=== PATIENT | male | born 1965 | race Caucasian/White ===

== ENCOUNTER 2022-03-08 14:31 | Inpatient (IN) | payer OTHER ==
[2022-03-08 15:43] VITALS: BMI 21.4
[2022-03-08] MEDS ORDERED: MAGNESIUM HYDROX 2400MG/30ML ORAL SUSPENSION 30 ML CUP PO PRN (20:55)
[2022-03-08] MEDS ORDERED: LOPERAMIDE HCL 2 MG CAPSULE PO PRN (20:55)
[2022-03-08] MEDS ORDERED: MAG HYDROX/AL HYDROX/SIMETH 30 ML UNIT-DOSE CUP PO PRN (20:55)
[2022-03-08] MEDS ORDERED: BISMUTH SUBSALICYLATE 524 MG/30 ML PO PRN (20:55)
[2022-03-08] MEDS ORDERED: NICOTINE POLACRILEX 2 MG GUM BUC PRN (20:55)
[2022-03-08] MEDS ORDERED: BENZOCAINE/MENTHOL (CHLORASEPTIC ) LOZENGE MM PRN (20:55)
[2022-03-08] MEDS ORDERED: methaDONE HCL 10 MG TABLET (FOR DETOX USE ONLY) PO ONE (20:55)
[2022-03-08] MEDS ORDERED: MAGNESIUM CITRATE 300 ML BOTTLE PO PRN (20:55)
[2022-03-08] MEDS ORDERED: ONDANSETRON *ODT* 4 MG TABLET SL PRN (20:55)
[2022-03-08] MEDS ORDERED: cloNIDine HCL 0.1 MG TABLET PO PRN (20:55)
[2022-03-08] MEDS ORDERED: ACETAMINOPHEN 325 MG TABLET (FP) PO PRN (20:55)
[2022-03-09] MEDS: MELATONIN 5 MG TABLETS PO SCH ×2 (00:01→22:32)
[2022-03-09] MEDS: THIAMINE HCL 100 MG TABLET (FP) PO SCH ×2 (00:02→22:32)
[2022-03-09] MEDS ORDERED: methaDONE HCL 10 MG TABLET (FOR DETOX USE ONLY) ONE (09:35)
[2022-03-09] MEDS: PRENATAL VITAMINS W/ FOLIC ACID TABLET (FP) PO SCH (10:20)
[2022-03-09] MEDS: NICOTINE 14 MG/24 HOURS TOPICAL PATCH TD SCH (11:01)
[2022-03-10] MEDS ORDERED: methaDONE HCL 10 MG TABLET (FOR DETOX USE ONLY) PO ONE (10:00)
[2022-03-10] MEDS: PRENATAL VITAMINS W/ FOLIC ACID TABLET (FP) PO SCH (10:20)
[2022-03-10] MEDS: METHOCARBAMOL 500 MG TABLET PO PRN (10:20)
[2022-03-10] MEDS: NICOTINE 14 MG/24 HOURS TOPICAL PATCH TD SCH (10:21)
[2022-03-10 11:05] LABS: HEMATOCRIT 41.3 % (35.4-49); HEMOGLOBIN 13.3 GM/dL (11.7-16.9); MCH 29.1 pg (25.7-33.7); MCHC 32.1 g/dl (32.0-35.9); MEAN CELL VOLUME 90.4 fl (80-96); MEAN PLT VOLUME 7.6 fl (7.5-11.1); PLATELET COUNT 384 10^3/uL (134-434); RBC 4.57 M/mm3 (4.00-5.60); RDW 14.3 % (11.9-15.9); WHITE BLOOD COUNT 7.7 K/mm3 (4.0-10.0)
[2022-03-10 11:37] LABS: ALBUMIN 3.4 g/dl (3.4-5.0); BLOOD UREA NITROGEN 18.3 mg/dL (7-18); CALCIUM 9.5 mg/dL (8.5-10.1)
[2022-03-10 11:39] LABS: CREATININE 1.2 mg/dL (0.55-1.3)
[2022-03-10 11:41] LABS: BILIRUBIN,TOTAL 0.2 mg/dL (0.2-1); TOT PROT 6.6 g/dl (6.4-8.2)
[2022-03-10] MEDS ORDERED: SODIUM POLYSTYRENE SULFONATE 15 GM/60 ML BOTTLE PO ONE (11:53)
[2022-03-10] MEDS: ACETAMINOPHEN 325 MG TABLET (FP) PO PRN (20:41)
[2022-03-10] MEDS: MELATONIN 5 MG TABLETS PO SCH (22:16)
[2022-03-10] MEDS: THIAMINE HCL 100 MG TABLET (FP) PO SCH (22:16)
[2022-03-11] MEDS: IBUPROFEN 400 MG TABLET (FP) PO PRN ×2 (06:30→14:34)
[2022-03-11] MEDS ORDERED: methaDONE HCL 10 MG TABLET (FOR DETOX USE ONLY) ONE (09:16)
[2022-03-11] MEDS: PRENATAL VITAMINS W/ FOLIC ACID TABLET (FP) PO SCH (10:20)
[2022-03-11] MEDS: METHOCARBAMOL 500 MG TABLET PO PRN (10:21)
[2022-03-11] MEDS: NICOTINE 14 MG/24 HOURS TOPICAL PATCH TD SCH (10:22)
[2022-03-11] MEDS: ACETAMINOPHEN 325 MG TABLET (FP) PO PRN (13:06)
[2022-03-11] MEDS ORDERED: LIDOCAINE VISCOUS 2% ORAL/TOP 15 ML UNIT-DOSE CUP MM ONE (16:00)
[2022-03-11] MEDS ORDERED: AMOXICILLIN 500 MG CAPSULE (FP) PO ONE (16:15)
[2022-03-11] MEDS: LIDOCAINE VISCOUS 2% ORAL/TOP 15 ML UNIT-DOSE CUP MM SCH ×2 (18:57→22:09)
[2022-03-11] MEDS: AMOXICILLIN 500 MG CAPSULE (FP) PO SCH (22:09)
[2022-03-11] MEDS: MELATONIN 5 MG TABLETS PO SCH (22:10)
[2022-03-11] MEDS: THIAMINE HCL 100 MG TABLET (FP) PO SCH (22:10)
[2022-03-11] MEDS: IBUPROFEN 600 MG TABLET (FP) PO PRN (22:11)
[2022-03-12] MEDS: LIDOCAINE VISCOUS 2% ORAL/TOP 15 ML UNIT-DOSE CUP MM SCH ×4 (05:56→23:20)
[2022-03-12] MEDS ORDERED: methaDONE HCL 10 MG TABLET (FOR DETOX USE ONLY) PO ONE (10:00)
[2022-03-12] MEDS: IBUPROFEN 600 MG TABLET (FP) PO PRN (10:16)
[2022-03-12] MEDS: METHOCARBAMOL 500 MG TABLET PO PRN (10:16)
[2022-03-12] MEDS: PRENATAL VITAMINS W/ FOLIC ACID TABLET (FP) PO SCH (10:16)
[2022-03-12] MEDS: AMOXICILLIN 500 MG CAPSULE (FP) PO SCH ×2 (10:16→22:19)
[2022-03-12] MEDS: NICOTINE 14 MG/24 HOURS TOPICAL PATCH TD SCH (10:18)
[2022-03-12] MEDS: ACETAMINOPHEN 325 MG TABLET (FP) PO PRN (11:59)
[2022-03-12] MEDS: DICYCLOMINE HCL 10 MG CAPSULE PO PRN ×2 (11:59→22:19)
[2022-03-12] MEDS: MELATONIN 5 MG TABLETS PO SCH (22:19)
[2022-03-12] MEDS: THIAMINE HCL 100 MG TABLET (FP) PO SCH (22:19)
[2022-03-13] MEDS: LIDOCAINE VISCOUS 2% ORAL/TOP 15 ML UNIT-DOSE CUP MM SCH ×2 (05:29→10:23)
[2022-03-13] MEDS: IBUPROFEN 600 MG TABLET (FP) PO PRN (06:55)
[2022-03-13 09:36] VITALS: BP 115/66; PULSE 67; TEMP 96.8
[2022-03-13] MEDS: METHOCARBAMOL 500 MG TABLET PO PRN (10:21)
[2022-03-13] MEDS: PRENATAL VITAMINS W/ FOLIC ACID TABLET (FP) PO SCH (10:21)
[2022-03-13] MEDS: AMOXICILLIN 500 MG CAPSULE (FP) PO SCH (10:21)
[2022-03-13] MEDS: ACETAMINOPHEN 325 MG TABLET (FP) PO PRN (10:22)
[2022-03-13] MEDS: NICOTINE 14 MG/24 HOURS TOPICAL PATCH TD SCH (10:23)
== END 2022-03-13 12:37 | disposition other institution (70) | DRG 773 ==
LOC: YASAS 14:31 → Y6N 23:15
PROVIDERS: ADMIT Allergy & Immunology; ATTEND Allergy & Immunology
PROC: HZ2ZZZZ Detoxification Services for Substance Abuse Treatment (ICD-10-PCS; principal; 2022-03-08)
DX: F11.23 Opioid dependence with withdrawal (principal); F14.20 Cocaine dependence, uncomplicated; F16.20 Hallucinogen dependence, uncomplicated; F12.20 Cannabis dependence, uncomplicated; F17.210 Nicotine dependence, cigarettes, uncomplicated; K08.89 Other specified disorders of teeth and supporting structures; Z86.19 Personal history of other infectious and parasitic diseases; Z56.0 Unemployment, unspecified; Z59.00 Homelessness unspecified
CPT/HCPCS: 36415; 80053; 84132; 85027; 86593; 86780; 93005; 93010; C9803-CS; J0735; U0003; U0005

== ENCOUNTER 2022-03-25 16:36 | Inpatient (IN) | payer OTHER ==
[2022-03-25 17:21] VITALS: BMI 24.3
[2022-03-25] MEDS ORDERED: LOPERAMIDE HCL 2 MG CAPSULE PO PRN (18:29)
[2022-03-25] MEDS ORDERED: MAGNESIUM CITRATE 300 ML BOTTLE PO PRN (18:29)
[2022-03-25] MEDS ORDERED: MAG HYDROX/AL HYDROX/SIMETH 30 ML UNIT-DOSE CUP PO PRN (18:29)
[2022-03-25] MEDS ORDERED: MELATONIN 5 MG TABLETS PO PRN (18:29)
[2022-03-25] MEDS ORDERED: P-EPHED 60MG/TRIPROLIDI 2.5MG TABLET PO PRN (18:29)
[2022-03-25] MEDS ORDERED: NICOTINE POLACRILEX 2 MG GUM BUC PRN (18:29)
[2022-03-25] MEDS ORDERED: MAGNESIUM HYDROX 2400MG/30ML ORAL SUSPENSION 30 ML CUP PO PRN (18:29)
[2022-03-26] MEDS: THIAMINE HCL 100 MG TABLET (FP) PO SCH ×2 (02:13→21:35)
[2022-03-26] MEDS: hydrOXYzine PAMOATE 25 MG CAPSULE (FP) PO PRN ×2 (10:07→21:35)
[2022-03-26] MEDS: IBUPROFEN 400 MG TABLET (FP) PO PRN (10:07)
[2022-03-26] MEDS: PRENATAL VITAMINS W/ FOLIC ACID TABLET (FP) PO SCH (10:07)
[2022-03-27] MEDS: IBUPROFEN 400 MG TABLET (FP) PO PRN ×2 (06:27→18:38)
[2022-03-27] MEDS: hydrOXYzine PAMOATE 25 MG CAPSULE (FP) PO PRN ×2 (06:27→11:11)
[2022-03-27] MEDS ORDERED: ONDANSETRON *ODT* 4 MG TABLET SL PRN (10:09)
[2022-03-27] MEDS ORDERED: SIMETHICONE 80 MG TAB.CHEW (FP) PO PRN (10:10)
[2022-03-27] MEDS: PRENATAL VITAMINS W/ FOLIC ACID TABLET (FP) PO SCH (11:11)
[2022-03-27] MEDS: METHOCARBAMOL 500 MG TABLET PO PRN (11:11)
[2022-03-27] MEDS: ACETAMINOPHEN 325 MG TABLET (FP) PO PRN (11:12)
[2022-03-27] MEDS: MIRTAZAPINE 15 MG TABLET (FP) PO SCH (21:21)
[2022-03-27] MEDS: THIAMINE HCL 100 MG TABLET (FP) PO SCH (21:21)
[2022-03-27] MEDS: QUEtiapine FUMARATE 100 MG TABLET (FP) PO SCH (21:21)
[2022-03-27] MEDS: HYDROCORTISONE 2.5% TOPICAL CREAM 30 GM TUBE TP SCH (21:22)
[2022-03-28] MEDS: PRENATAL VITAMINS W/ FOLIC ACID TABLET (FP) PO SCH (09:48)
[2022-03-28] MEDS: METHOCARBAMOL 500 MG TABLET PO PRN ×2 (09:50→21:31)
[2022-03-28] MEDS: hydrOXYzine PAMOATE 25 MG CAPSULE (FP) PO PRN (09:50)
[2022-03-28] MEDS: HYDROCORTISONE 2.5% TOPICAL CREAM 30 GM TUBE TP SCH ×2 (09:50→21:30)
[2022-03-28] MEDS: IBUPROFEN 400 MG TABLET (FP) PO PRN ×2 (09:51→21:31)
[2022-03-28] MEDS: THIAMINE HCL 100 MG TABLET (FP) PO SCH (21:31)
[2022-03-28] MEDS: QUEtiapine FUMARATE 100 MG TABLET (FP) PO SCH (21:31)
[2022-03-28] MEDS: MIRTAZAPINE 15 MG TABLET (FP) PO SCH (21:31)
[2022-03-29] MEDS: IBUPROFEN 400 MG TABLET (FP) PO PRN ×2 (05:46→22:54)
[2022-03-29] MEDS: ACETAMINOPHEN 325 MG TABLET (FP) PO PRN ×2 (09:54→16:07)
[2022-03-29] MEDS: HYDROCORTISONE 2.5% TOPICAL CREAM 30 GM TUBE TP SCH (09:54)
[2022-03-29] MEDS: PRENATAL VITAMINS W/ FOLIC ACID TABLET (FP) PO SCH (09:54)
[2022-03-29] MEDS: hydrOXYzine PAMOATE 25 MG CAPSULE (FP) PO PRN (09:54)
[2022-03-29] MEDS: METHOCARBAMOL 500 MG TABLET PO PRN ×2 (09:54→22:54)
[2022-03-29] MEDS: MIRTAZAPINE 15 MG TABLET (FP) PO SCH (22:11)
[2022-03-29] MEDS: QUEtiapine FUMARATE 200 MG TABLET PO SCH (22:11)
[2022-03-29] MEDS: THIAMINE HCL 100 MG TABLET (FP) PO SCH (22:11)
[2022-03-30] MEDS: HYDROCORTISONE 2.5% TOPICAL CREAM 30 GM TUBE TP SCH ×3 (00:03→22:03)
[2022-03-30] MEDS: PRENATAL VITAMINS W/ FOLIC ACID TABLET (FP) PO SCH (09:32)
[2022-03-30] MEDS: hydrOXYzine PAMOATE 25 MG CAPSULE (FP) PO PRN (09:38)
[2022-03-30] MEDS: METHOCARBAMOL 500 MG TABLET PO PRN (09:38)
[2022-03-30] MEDS: ACETAMINOPHEN 325 MG TABLET (FP) PO PRN ×2 (09:38→23:45)
[2022-03-30] MEDS: QUEtiapine FUMARATE 200 MG TABLET PO SCH (22:03)
[2022-03-30] MEDS: MIRTAZAPINE 15 MG TABLET (FP) PO SCH (22:03)
[2022-03-30] MEDS: THIAMINE HCL 100 MG TABLET (FP) PO SCH (22:03)
[2022-03-31] MEDS: IBUPROFEN 400 MG TABLET (FP) PO PRN (07:02)
[2022-03-31] MEDS: guaiFENesin 200 MG/10 ML 10 ML UNIT-DOSE CUPS PO PRN (07:10)
[2022-03-31] MEDS: HYDROCORTISONE 2.5% TOPICAL CREAM 30 GM TUBE TP SCH ×2 (09:44→21:48)
[2022-03-31] MEDS: ACETAMINOPHEN 325 MG TABLET (FP) PO PRN ×2 (09:45→18:08)
[2022-03-31] MEDS: PRENATAL VITAMINS W/ FOLIC ACID TABLET (FP) PO SCH (09:45)
[2022-03-31] MEDS: METHOCARBAMOL 500 MG TABLET PO PRN (09:45)
[2022-03-31] MEDS: BENZOCAINE/MENTHOL (CHLORASEPTIC ) LOZENGE MM PRN ×2 (18:06→21:52)
[2022-03-31] MEDS: MIRTAZAPINE 15 MG TABLET (FP) PO SCH (21:47)
[2022-03-31] MEDS: THIAMINE HCL 100 MG TABLET (FP) PO SCH (21:47)
[2022-03-31] MEDS: QUEtiapine FUMARATE 200 MG TABLET PO SCH (21:47)
[2022-04-01] MEDS: guaiFENesin 200 MG/10 ML 10 ML UNIT-DOSE CUPS PO PRN (06:35)
[2022-04-01] MEDS: IBUPROFEN 400 MG TABLET (FP) PO PRN (06:35)
[2022-04-01] MEDS ORDERED: LIDOCAINE VISCOUS 2% ORAL/TOP 15 ML UNIT-DOSE CUP MM PRN (08:53)
[2022-04-01] MEDS: METHOCARBAMOL 500 MG TABLET PO PRN ×2 (10:43→21:39)
[2022-04-01] MEDS: PRENATAL VITAMINS W/ FOLIC ACID TABLET (FP) PO SCH (10:43)
[2022-04-01] MEDS: HYDROCORTISONE 2.5% TOPICAL CREAM 30 GM TUBE TP SCH ×2 (10:43→21:40)
[2022-04-01] MEDS ORDERED: ERYTHROMYCIN 0.5% OPHTHALMIC OINTMENT 3.5 GM TUBE OS SCH (11:00)
[2022-04-01] MEDS: BENZOCAINE/MENTHOL (CHLORASEPTIC ) LOZENGE MM PRN (21:39)
[2022-04-01] MEDS: QUEtiapine FUMARATE 200 MG TABLET PO SCH (21:39)
[2022-04-01] MEDS: THIAMINE HCL 100 MG TABLET (FP) PO SCH (21:39)
[2022-04-01] MEDS: MIRTAZAPINE 15 MG TABLET (FP) PO SCH (21:39)
[2022-04-01] MEDS: ACETAMINOPHEN 325 MG TABLET (FP) PO PRN (21:48)
[2022-04-02] MEDS: IBUPROFEN 400 MG TABLET (FP) PO PRN ×2 (06:28→20:05)
[2022-04-02] MEDS: hydrOXYzine PAMOATE 25 MG CAPSULE (FP) PO PRN (09:33)
[2022-04-02] MEDS: PRENATAL VITAMINS W/ FOLIC ACID TABLET (FP) PO SCH (09:33)
[2022-04-02] MEDS: METHOCARBAMOL 500 MG TABLET PO PRN ×2 (09:33→21:45)
[2022-04-02] MEDS: HYDROCORTISONE 2.5% TOPICAL CREAM 30 GM TUBE TP SCH ×2 (09:34→21:48)
[2022-04-02] MEDS: BENZOCAINE/MENTHOL (CHLORASEPTIC ) LOZENGE MM PRN (20:06)
[2022-04-02] MEDS: QUEtiapine FUMARATE 200 MG TABLET PO SCH (21:45)
[2022-04-02] MEDS: THIAMINE HCL 100 MG TABLET (FP) PO SCH (21:45)
[2022-04-02] MEDS: MIRTAZAPINE 15 MG TABLET (FP) PO SCH (21:45)
[2022-04-03] MEDS: ACETAMINOPHEN 325 MG TABLET (FP) PO PRN ×3 (04:44→15:10)
[2022-04-03] MEDS: IBUPROFEN 400 MG TABLET (FP) PO PRN (07:18)
[2022-04-03 07:26] VITALS: BP 111/68; PULSE 68; TEMP 97.8
[2022-04-03] MEDS: hydrOXYzine PAMOATE 25 MG CAPSULE (FP) PO PRN (09:50)
[2022-04-03] MEDS: METHOCARBAMOL 500 MG TABLET PO PRN (09:50)
[2022-04-03] MEDS: PRENATAL VITAMINS W/ FOLIC ACID TABLET (FP) PO SCH (09:50)
[2022-04-03] MEDS: HYDROCORTISONE 2.5% TOPICAL CREAM 30 GM TUBE TP SCH (09:50)
[2022-04-03] MEDS ORDERED: BENZOCAINE 20 % GEL TUBE MM PRN (12:52)
== END 2022-04-03 15:30 | disposition home or self-care (01) | DRG 772 ==
LOC: YASAS 16:36 → Y5N 03-26 01:18
PROVIDERS: ADMIT Allergy & Immunology; ATTEND Psychiatry & Neurology Pain Medicine
PROC: HZ42ZZZ Group Counseling for Substance Abuse Treatment, Cognitive-Behavioral (ICD-10-PCS; principal; 2022-03-26)
DX: F14.20 Cocaine dependence, uncomplicated (principal); F16.20 Hallucinogen dependence, uncomplicated; F12.20 Cannabis dependence, uncomplicated; F17.210 Nicotine dependence, cigarettes, uncomplicated; F31.9 Bipolar disorder, unspecified; F20.9 Schizophrenia, unspecified; F19.24 Other psychoactive substance dependence with psychoactive substance-induced mood disorder; U07.1 COVID-19; G47.00 Insomnia, unspecified; K02.9 Dental caries, unspecified; R35.0 Frequency of micturition; Z20.2 Contact with and (suspected) exposure to infections with a predominantly sexual mode of transmission
CPT/HCPCS: C9803-CS; Q0162; U0003; U0005

== ENCOUNTER 2023-05-08 10:08 | Inpatient (IN) | payer OTHER ==
[2023-05-08 10:29] VITALS: BMI 26.2
[2023-05-08] MEDS ORDERED: IBUPROFEN 600 MG TABLET (FP) PO PRN (11:22)
[2023-05-08] MEDS ORDERED: MAGNESIUM HYDROX 2400MG/30ML ORAL SUSPENSION 30 ML CUP PO PRN (11:22)
[2023-05-08] MEDS ORDERED: BENZOCAINE/MENTHOL (CHLORASEPTIC ) LOZENGE MM PRN (11:22)
[2023-05-08] MEDS ORDERED: AMMONIUM LACTATE 12% LOTION 225 GM BOTTLE TP PRN (11:22)
[2023-05-08] MEDS ORDERED: guaiFENesin 600 MG TABLET.ER (FP) PO PRN (11:22)
[2023-05-08] MEDS ORDERED: NALOXONE HCL 0.4 MG/ML VIAL IM PRN (11:22)
[2023-05-08] MEDS ORDERED: NICOTINE 10 MG CARTRIDGE (INHALER) IH PRN (11:22)
[2023-05-08] MEDS ORDERED: NALOXONE HCL (KLOXXADO) 8 MG SPRAY NS PRN (11:22)
[2023-05-08] MEDS ORDERED: POLYETHYLENE GLYCOL (HEALTHYLAX) 3350 17 GM PACKET PO PRN (11:22)
[2023-05-08] MEDS ORDERED: COLLOIDAL OATMEAL 1 BAR EACH TP PRN (11:22)
[2023-05-08] MEDS ORDERED: hydrOXYzine PAMOATE 25 MG CAPSULE (FP) PO PRN (11:22)
[2023-05-08] MEDS ORDERED: MAG HYDROX/AL HYDROX/SIMETH 30 ML UNIT-DOSE CUP PO PRN (11:22)
[2023-05-08] MEDS ORDERED: BENZONATATE 200 MG CAPSULE PO PRN (11:22)
[2023-05-08] MEDS ORDERED: IBUPROFEN 400 MG TABLET (FP) PO PRN (11:22)
[2023-05-08] MEDS ORDERED: ACETAMINOPHEN 325 MG TABLET (FP) PO PRN (11:22)
[2023-05-08] MEDS: PRENATAL VITAMINS W/ FOLIC ACID TABLET (FP) PO SCH (13:41)
[2023-05-08] MEDS ORDERED: TUBERCULIN PPD 5 TU/0.1ML VIAL ID ONE (14:59)
[2023-05-08] MEDS: THIAMINE HCL 100 MG TABLET (FP) PO SCH (21:22)
[2023-05-08] MEDS: MELATONIN 5 MG TABLETS PO SCH (21:22)
[2023-05-08] MEDS: QUEtiapine FUMARATE 200 MG TABLET PO SCH (21:22)
[2023-05-09] MEDS: PRENATAL VITAMINS W/ FOLIC ACID TABLET (FP) PO SCH (10:20)
[2023-05-09 10:38] LABS: HEMATOCRIT 40.3 % (35.4-49); HEMOGLOBIN 13.4 GM/dL (11.7-16.9); MCH 28.5 pg (25.7-33.7); MCHC 33.2 g/dl (32.0-35.9); MEAN CELL VOLUME 85.9 fl (80-96); MEAN PLT VOLUME 7.6 fl (7.5-11.1); PLATELET COUNT 352 10^3/uL (134-434); RBC 4.69 M/mm3 (4.00-5.60); RDW 15.2 % (11.9-15.9); WHITE BLOOD COUNT 6.4 K/mm3 (4.0-10.0)
[2023-05-09 10:45] LABS: POTASSIUM 4.4 mmol/L (3.5-5.1)
[2023-05-09 10:50] LABS: ALBUMIN 4.2 g/dl (3.4-5.0); BLOOD UREA NITROGEN 20.5 mg/dL (7-18); CALCIUM 9.9 mg/dL (8.5-10.1)
[2023-05-09 10:53] LABS: CREATININE 1.3 mg/dL (0.55-1.3)
[2023-05-09 10:54] LABS: BILIRUBIN,TOTAL 0.2 mg/dL (0.2-1); TOT PROT 7.9 g/dl (6.4-8.2)
[2023-05-09] MEDS ORDERED: PNEUMOC 20-VAL CONJ-DIP CRM/PF 0.5 ML SYRINGE IM ONE (12:00)
[2023-05-09] MEDS: MELATONIN 5 MG TABLETS PO SCH (21:29)
[2023-05-09] MEDS: THIAMINE HCL 100 MG TABLET (FP) PO SCH (21:29)
[2023-05-09] MEDS: QUEtiapine FUMARATE 200 MG TABLET PO SCH (21:29)
[2023-05-10] MEDS: PRENATAL VITAMINS W/ FOLIC ACID TABLET (FP) PO SCH (10:00)
[2023-05-10] MEDS: metFORMIN HCL 500 MG TABLET (FP) PO SCH (16:47)
[2023-05-10] MEDS: DONEPEZIL HCL 10 MG TABLET (FP) PO SCH (21:14)
[2023-05-10] MEDS: QUEtiapine FUMARATE 200 MG TABLET PO SCH (21:14)
[2023-05-10] MEDS: MELATONIN 5 MG TABLETS PO SCH (21:14)
[2023-05-10] MEDS: THIAMINE HCL 100 MG TABLET (FP) PO SCH (21:14)
[2023-05-10] MEDS: ATORVASTATIN CA 40 MG TABLET (FP) PO SCH (21:15)
[2023-05-11] MEDS: metFORMIN HCL 500 MG TABLET (FP) PO SCH ×2 (06:06→17:11)
[2023-05-11] MEDS: PRENATAL VITAMINS W/ FOLIC ACID TABLET (FP) PO SCH (10:11)
[2023-05-11] MEDS: QUEtiapine FUMARATE 200 MG TABLET PO SCH (21:37)
[2023-05-11] MEDS: DONEPEZIL HCL 10 MG TABLET (FP) PO SCH (21:37)
[2023-05-11] MEDS: ATORVASTATIN CA 40 MG TABLET (FP) PO SCH (21:37)
[2023-05-11] MEDS: MELATONIN 5 MG TABLETS PO SCH (21:38)
[2023-05-11] MEDS: THIAMINE HCL 100 MG TABLET (FP) PO SCH (21:38)
[2023-05-12] MEDS: metFORMIN HCL 500 MG TABLET (FP) PO SCH ×2 (06:21→16:49)
[2023-05-12] MEDS: PRENATAL VITAMINS W/ FOLIC ACID TABLET (FP) PO SCH (09:51)
[2023-05-12] MEDS: LIDOCAINE 5% TOPICAL PATCH TP SCH (14:21)
[2023-05-12] MEDS: BACLOFEN 10 MG TABLET (FP) PO SCH ×2 (14:21→21:11)
[2023-05-12] MEDS: ITRACONAZOLE 100 MG CAPSULE PO SCH (15:13)
[2023-05-12] MEDS: ATORVASTATIN CA 40 MG TABLET (FP) PO SCH (21:11)
[2023-05-12] MEDS: QUEtiapine FUMARATE 200 MG TABLET PO SCH (21:11)
[2023-05-12] MEDS: LIDOCAINE PATCH REMOVAL MC SCH (21:12)
[2023-05-12] MEDS: DONEPEZIL HCL 10 MG TABLET (FP) PO SCH (21:12)
[2023-05-12] MEDS: MELATONIN 5 MG TABLETS PO SCH (21:12)
[2023-05-12] MEDS: THIAMINE HCL 100 MG TABLET (FP) PO SCH (21:12)
[2023-05-13] MEDS: metFORMIN HCL 500 MG TABLET (FP) PO SCH ×2 (06:55→16:33)
[2023-05-13] MEDS: BACLOFEN 10 MG TABLET (FP) PO SCH ×3 (06:55→21:09)
[2023-05-13] MEDS: LIDOCAINE 5% TOPICAL PATCH TP SCH (10:14)
[2023-05-13] MEDS: PRENATAL VITAMINS W/ FOLIC ACID TABLET (FP) PO SCH (10:14)
[2023-05-13] MEDS: ITRACONAZOLE 100 MG CAPSULE PO SCH (10:15)
[2023-05-13] MEDS: GABAPENTIN 100 MG CAPSULE PO SCH ×2 (16:33→21:10)
[2023-05-13] MEDS: THIAMINE HCL 100 MG TABLET (FP) PO SCH (21:08)
[2023-05-13] MEDS: QUEtiapine FUMARATE 200 MG TABLET PO SCH (21:09)
[2023-05-13] MEDS: MELATONIN 5 MG TABLETS PO SCH (21:09)
[2023-05-13] MEDS: ATORVASTATIN CA 40 MG TABLET (FP) PO SCH (21:10)
[2023-05-13] MEDS: LIDOCAINE PATCH REMOVAL MC SCH (21:10)
[2023-05-13] MEDS: DONEPEZIL HCL 10 MG TABLET (FP) PO SCH (23:27)
[2023-05-14] MEDS: metFORMIN HCL 500 MG TABLET (FP) PO SCH ×2 (07:22→16:25)
[2023-05-14] MEDS: GABAPENTIN 100 MG CAPSULE PO SCH ×3 (07:22→21:09)
[2023-05-14] MEDS: BACLOFEN 10 MG TABLET (FP) PO SCH ×3 (07:22→21:08)
[2023-05-14] MEDS: PRENATAL VITAMINS W/ FOLIC ACID TABLET (FP) PO SCH (09:45)
[2023-05-14] MEDS: ITRACONAZOLE 100 MG CAPSULE PO SCH (09:45)
[2023-05-14] MEDS: LIDOCAINE 5% TOPICAL PATCH TP SCH (09:45)
[2023-05-14] MEDS: THIAMINE HCL 100 MG TABLET (FP) PO SCH (21:08)
[2023-05-14] MEDS: MELATONIN 5 MG TABLETS PO SCH (21:08)
[2023-05-14] MEDS: QUEtiapine FUMARATE 200 MG TABLET PO SCH (21:08)
[2023-05-14] MEDS: ATORVASTATIN CA 40 MG TABLET (FP) PO SCH (21:08)
[2023-05-14] MEDS: DONEPEZIL HCL 10 MG TABLET (FP) PO SCH (21:09)
[2023-05-14] MEDS: LIDOCAINE PATCH REMOVAL MC SCH (21:09)
[2023-05-14] MEDS: TOLNAFTATE 1% CREAM 15 GM TUBE TP SCH (21:57)
[2023-05-15] MEDS: metFORMIN HCL 500 MG TABLET (FP) PO SCH ×2 (06:40→16:46)
[2023-05-15] MEDS: BACLOFEN 10 MG TABLET (FP) PO SCH ×3 (06:40→21:15)
[2023-05-15] MEDS: GABAPENTIN 100 MG CAPSULE PO SCH ×3 (06:40→21:15)
[2023-05-15] MEDS ORDERED: BENZOCAINE 28 GM HEMORRHOIDAL OINTMENT RC PRN (09:05)
[2023-05-15] MEDS ORDERED: TAMSULOSIN HCL 0.4 MG CAP PO ONE (09:30)
[2023-05-15] MEDS: TOLNAFTATE 1% CREAM 15 GM TUBE TP SCH ×2 (10:01→21:15)
[2023-05-15] MEDS: PRENATAL VITAMINS W/ FOLIC ACID TABLET (FP) PO SCH (10:01)
[2023-05-15] MEDS: LIDOCAINE 5% TOPICAL PATCH TP SCH (10:01)
[2023-05-15] MEDS: HYDROCORTISONE 2.5% TOPICAL CREAM 30 GM TUBE RC SCH (10:04)
[2023-05-15] MEDS: LIDOCAINE PATCH REMOVAL MC SCH (21:14)
[2023-05-15] MEDS: ATORVASTATIN CA 40 MG TABLET (FP) PO SCH (21:15)
[2023-05-15] MEDS: MELATONIN 5 MG TABLETS PO SCH (21:15)
[2023-05-15] MEDS: DONEPEZIL HCL 10 MG TABLET (FP) PO SCH (21:15)
[2023-05-15] MEDS: THIAMINE HCL 100 MG TABLET (FP) PO SCH (21:15)
[2023-05-15] MEDS: QUEtiapine FUMARATE 200 MG TABLET PO SCH (21:15)
[2023-05-16] MEDS: BACLOFEN 10 MG TABLET (FP) PO SCH ×3 (06:39→21:10)
[2023-05-16] MEDS: GABAPENTIN 100 MG CAPSULE PO SCH ×3 (06:39→21:10)
[2023-05-16] MEDS: metFORMIN HCL 500 MG TABLET (FP) PO SCH ×2 (06:39→17:15)
[2023-05-16] MEDS: TAMSULOSIN HCL 0.4 MG CAP PO SCH (09:03)
[2023-05-16] MEDS: LIDOCAINE 5% TOPICAL PATCH TP SCH (09:03)
[2023-05-16] MEDS: PRENATAL VITAMINS W/ FOLIC ACID TABLET (FP) PO SCH (09:03)
[2023-05-16] MEDS: HYDROCORTISONE 2.5% TOPICAL CREAM 30 GM TUBE RC SCH (09:04)
[2023-05-16] MEDS: TOLNAFTATE 1% CREAM 15 GM TUBE TP SCH ×2 (09:04→21:12)
[2023-05-16] MEDS: ATORVASTATIN CA 40 MG TABLET (FP) PO SCH (21:10)
[2023-05-16] MEDS: MELATONIN 5 MG TABLETS PO SCH (21:11)
[2023-05-16] MEDS: QUEtiapine FUMARATE 200 MG TABLET PO SCH (21:11)
[2023-05-16] MEDS: THIAMINE HCL 100 MG TABLET (FP) PO SCH (21:11)
[2023-05-16] MEDS: DONEPEZIL HCL 10 MG TABLET (FP) PO SCH (21:11)
[2023-05-16] MEDS: LIDOCAINE PATCH REMOVAL MC SCH (21:56)
[2023-05-17] MEDS: GABAPENTIN 100 MG CAPSULE PO SCH ×3 (06:35→21:33)
[2023-05-17] MEDS: metFORMIN HCL 500 MG TABLET (FP) PO SCH ×2 (06:35→16:53)
[2023-05-17] MEDS: BACLOFEN 10 MG TABLET (FP) PO SCH ×3 (06:35→21:31)
[2023-05-17] MEDS: PRENATAL VITAMINS W/ FOLIC ACID TABLET (FP) PO SCH (09:07)
[2023-05-17] MEDS: TAMSULOSIN HCL 0.4 MG CAP PO SCH (09:07)
[2023-05-17] MEDS: LIDOCAINE 5% TOPICAL PATCH TP SCH (09:08)
[2023-05-17] MEDS: ERGOCALCIFEROL (VIT D2) 50,000 UNIT (1.25 MG) CAPSULE PO SCH (09:08)
[2023-05-17] MEDS: HYDROCORTISONE 2.5% TOPICAL CREAM 30 GM TUBE RC SCH (09:08)
[2023-05-17] MEDS: TOLNAFTATE 1% CREAM 15 GM TUBE TP SCH ×2 (09:09→21:32)
[2023-05-17] MEDS: DONEPEZIL HCL 10 MG TABLET (FP) PO SCH (21:31)
[2023-05-17] MEDS: QUEtiapine FUMARATE 200 MG TABLET PO SCH (21:31)
[2023-05-17] MEDS: ATORVASTATIN CA 40 MG TABLET (FP) PO SCH (21:31)
[2023-05-17] MEDS: LIDOCAINE PATCH REMOVAL MC SCH (21:32)
[2023-05-17] MEDS: THIAMINE HCL 100 MG TABLET (FP) PO SCH (21:32)
[2023-05-17] MEDS: MELATONIN 5 MG TABLETS PO SCH (21:32)
[2023-05-18] MEDS: GABAPENTIN 100 MG CAPSULE PO SCH ×2 (06:57→13:05)
[2023-05-18] MEDS: metFORMIN HCL 500 MG TABLET (FP) PO SCH ×2 (06:57→16:40)
[2023-05-18] MEDS: BACLOFEN 10 MG TABLET (FP) PO SCH ×3 (06:57→21:04)
[2023-05-18] MEDS: PRENATAL VITAMINS W/ FOLIC ACID TABLET (FP) PO SCH (09:11)
[2023-05-18] MEDS: TAMSULOSIN HCL 0.4 MG CAP PO SCH (09:11)
[2023-05-18] MEDS: TOLNAFTATE 1% CREAM 15 GM TUBE TP SCH ×2 (09:12→21:04)
[2023-05-18] MEDS: HYDROCORTISONE 2.5% TOPICAL CREAM 30 GM TUBE RC SCH (09:12)
[2023-05-18] MEDS: LIDOCAINE 5% TOPICAL PATCH TP SCH (09:12)
[2023-05-18] MEDS: DONEPEZIL HCL 10 MG TABLET (FP) PO SCH (21:04)
[2023-05-18] MEDS: MELATONIN 5 MG TABLETS PO SCH (21:04)
[2023-05-18] MEDS: THIAMINE HCL 100 MG TABLET (FP) PO SCH (21:04)
[2023-05-18] MEDS: QUEtiapine FUMARATE 200 MG TABLET PO SCH (21:04)
[2023-05-18] MEDS: ATORVASTATIN CA 40 MG TABLET (FP) PO SCH (21:04)
[2023-05-18] MEDS: LIDOCAINE PATCH REMOVAL MC SCH (21:05)
[2023-05-19] MEDS: BACLOFEN 10 MG TABLET (FP) PO SCH ×3 (05:52→21:14)
[2023-05-19] MEDS: metFORMIN HCL 500 MG TABLET (FP) PO SCH ×2 (06:02→16:34)
[2023-05-19] MEDS: TAMSULOSIN HCL 0.4 MG CAP PO SCH (07:34)
[2023-05-19] MEDS: GABAPENTIN 100 MG CAPSULE PO SCH (09:39)
[2023-05-19] MEDS: LIDOCAINE 5% TOPICAL PATCH TP SCH (09:39)
[2023-05-19] MEDS: PRENATAL VITAMINS W/ FOLIC ACID TABLET (FP) PO SCH (09:39)
[2023-05-19] MEDS: TOLNAFTATE 1% CREAM 15 GM TUBE TP SCH ×2 (09:40→22:04)
[2023-05-19] MEDS: HYDROCORTISONE 2.5% TOPICAL CREAM 30 GM TUBE RC SCH (09:40)
[2023-05-19] MEDS: QUEtiapine FUMARATE 200 MG TABLET PO SCH (21:14)
[2023-05-19] MEDS: ATORVASTATIN CA 40 MG TABLET (FP) PO SCH (21:14)
[2023-05-19] MEDS: THIAMINE HCL 100 MG TABLET (FP) PO SCH (21:14)
[2023-05-19] MEDS: DONEPEZIL HCL 10 MG TABLET (FP) PO SCH (21:14)
[2023-05-19] MEDS: MELATONIN 5 MG TABLETS PO SCH (21:14)
[2023-05-19] MEDS: LIDOCAINE PATCH REMOVAL MC SCH (21:14)
[2023-05-20] MEDS: BACLOFEN 10 MG TABLET (FP) PO SCH ×3 (06:23→21:10)
[2023-05-20] MEDS: metFORMIN HCL 500 MG TABLET (FP) PO SCH ×2 (06:23→17:04)
[2023-05-20] MEDS: LIDOCAINE 5% TOPICAL PATCH TP SCH (09:11)
[2023-05-20] MEDS: GABAPENTIN 100 MG CAPSULE PO SCH (09:11)
[2023-05-20] MEDS: HYDROCORTISONE 2.5% TOPICAL CREAM 30 GM TUBE RC SCH (09:11)
[2023-05-20] MEDS: TAMSULOSIN HCL 0.4 MG CAP PO SCH (09:11)
[2023-05-20] MEDS: PRENATAL VITAMINS W/ FOLIC ACID TABLET (FP) PO SCH (09:11)
[2023-05-20] MEDS: TOLNAFTATE 1% CREAM 15 GM TUBE TP SCH ×2 (09:11→21:11)
[2023-05-20] MEDS: QUEtiapine FUMARATE 200 MG TABLET PO SCH (21:10)
[2023-05-20] MEDS: MELATONIN 5 MG TABLETS PO SCH (21:10)
[2023-05-20] MEDS: ATORVASTATIN CA 40 MG TABLET (FP) PO SCH (21:10)
[2023-05-20] MEDS: THIAMINE HCL 100 MG TABLET (FP) PO SCH (21:10)
[2023-05-20] MEDS: LIDOCAINE PATCH REMOVAL MC SCH (21:11)
[2023-05-20] MEDS: DONEPEZIL HCL 10 MG TABLET (FP) PO SCH (21:11)
[2023-05-21] MEDS: BACLOFEN 10 MG TABLET (FP) PO SCH ×3 (06:14→21:38)
[2023-05-21] MEDS: metFORMIN HCL 500 MG TABLET (FP) PO SCH ×2 (06:14→17:41)
[2023-05-21] MEDS: PRENATAL VITAMINS W/ FOLIC ACID TABLET (FP) PO SCH (09:12)
[2023-05-21] MEDS: TAMSULOSIN HCL 0.4 MG CAP PO SCH (09:12)
[2023-05-21] MEDS: LIDOCAINE 5% TOPICAL PATCH TP SCH (09:13)
[2023-05-21] MEDS: HYDROCORTISONE 2.5% TOPICAL CREAM 30 GM TUBE RC SCH (09:13)
[2023-05-21] MEDS: GABAPENTIN 100 MG CAPSULE PO SCH (09:13)
[2023-05-21] MEDS: TOLNAFTATE 1% CREAM 15 GM TUBE TP SCH ×2 (09:13→21:40)
[2023-05-21] MEDS: QUEtiapine FUMARATE 200 MG TABLET PO SCH (21:38)
[2023-05-21] MEDS: LIDOCAINE PATCH REMOVAL MC SCH (21:38)
[2023-05-21] MEDS: ATORVASTATIN CA 40 MG TABLET (FP) PO SCH (21:38)
[2023-05-21] MEDS: MELATONIN 5 MG TABLETS PO SCH (21:38)
[2023-05-21] MEDS: DONEPEZIL HCL 10 MG TABLET (FP) PO SCH (21:39)
[2023-05-21] MEDS: THIAMINE HCL 100 MG TABLET (FP) PO SCH (21:39)
[2023-05-22] MEDS: BACLOFEN 10 MG TABLET (FP) PO SCH ×3 (05:56→21:21)
[2023-05-22] MEDS: metFORMIN HCL 500 MG TABLET (FP) PO SCH ×2 (06:59→16:33)
[2023-05-22] MEDS: TAMSULOSIN HCL 0.4 MG CAP PO SCH (07:57)
[2023-05-22] MEDS: HYDROCORTISONE 2.5% TOPICAL CREAM 30 GM TUBE RC SCH (09:31)
[2023-05-22] MEDS: GABAPENTIN 100 MG CAPSULE PO SCH (09:31)
[2023-05-22] MEDS: TOLNAFTATE 1% CREAM 15 GM TUBE TP SCH ×2 (09:32→21:24)
[2023-05-22] MEDS: PRENATAL VITAMINS W/ FOLIC ACID TABLET (FP) PO SCH (09:32)
[2023-05-22] MEDS: LIDOCAINE 5% TOPICAL PATCH TP SCH (09:32)
[2023-05-22] MEDS: ATORVASTATIN CA 40 MG TABLET (FP) PO SCH (21:20)
[2023-05-22] MEDS: MELATONIN 5 MG TABLETS PO SCH (21:21)
[2023-05-22] MEDS: LIDOCAINE PATCH REMOVAL MC SCH (21:21)
[2023-05-22] MEDS: THIAMINE HCL 100 MG TABLET (FP) PO SCH (21:21)
[2023-05-22] MEDS: QUEtiapine FUMARATE 200 MG TABLET PO SCH (21:21)
[2023-05-22] MEDS: DONEPEZIL HCL 10 MG TABLET (FP) PO SCH (21:22)
[2023-05-23] MEDS: metFORMIN HCL 500 MG TABLET (FP) PO SCH ×2 (07:12→16:39)
[2023-05-23] MEDS: BACLOFEN 10 MG TABLET (FP) PO SCH ×3 (07:12→21:29)
[2023-05-23] MEDS: TAMSULOSIN HCL 0.4 MG CAP PO SCH (09:02)
[2023-05-23] MEDS: GABAPENTIN 100 MG CAPSULE PO SCH (09:03)
[2023-05-23] MEDS: PRENATAL VITAMINS W/ FOLIC ACID TABLET (FP) PO SCH (09:03)
[2023-05-23] MEDS: LIDOCAINE 5% TOPICAL PATCH TP SCH (09:03)
[2023-05-23] MEDS: HYDROCORTISONE 2.5% TOPICAL CREAM 30 GM TUBE RC SCH (09:03)
[2023-05-23] MEDS: TOLNAFTATE 1% CREAM 15 GM TUBE TP SCH ×2 (09:14→21:30)
[2023-05-23] MEDS: ATORVASTATIN CA 40 MG TABLET (FP) PO SCH (21:29)
[2023-05-23] MEDS: DONEPEZIL HCL 10 MG TABLET (FP) PO SCH (21:29)
[2023-05-23] MEDS: THIAMINE HCL 100 MG TABLET (FP) PO SCH (21:29)
[2023-05-23] MEDS: LIDOCAINE PATCH REMOVAL MC SCH (21:29)
[2023-05-23] MEDS: MELATONIN 5 MG TABLETS PO SCH (21:29)
[2023-05-23] MEDS: QUEtiapine FUMARATE 200 MG TABLET PO SCH (21:30)
[2023-05-24] MEDS: BACLOFEN 10 MG TABLET (FP) PO SCH ×3 (06:07→21:39)
[2023-05-24] MEDS: metFORMIN HCL 500 MG TABLET (FP) PO SCH ×2 (06:44→17:05)
[2023-05-24] MEDS: TAMSULOSIN HCL 0.4 MG CAP PO SCH (09:23)
[2023-05-24] MEDS: HYDROCORTISONE 2.5% TOPICAL CREAM 30 GM TUBE RC SCH (09:24)
[2023-05-24] MEDS: LIDOCAINE 5% TOPICAL PATCH TP SCH (09:25)
[2023-05-24] MEDS: GABAPENTIN 100 MG CAPSULE PO SCH (09:25)
[2023-05-24] MEDS: ERGOCALCIFEROL (VIT D2) 50,000 UNIT (1.25 MG) CAPSULE PO SCH (09:26)
[2023-05-24] MEDS: PRENATAL VITAMINS W/ FOLIC ACID TABLET (FP) PO SCH (09:26)
[2023-05-24] MEDS: TOLNAFTATE 1% CREAM 15 GM TUBE TP SCH ×2 (09:26→21:40)
[2023-05-24] MEDS: DONEPEZIL HCL 10 MG TABLET (FP) PO SCH (21:38)
[2023-05-24] MEDS: MELATONIN 5 MG TABLETS PO SCH (21:38)
[2023-05-24] MEDS: QUEtiapine FUMARATE 200 MG TABLET PO SCH (21:38)
[2023-05-24] MEDS: ATORVASTATIN CA 40 MG TABLET (FP) PO SCH (21:38)
[2023-05-24] MEDS: THIAMINE HCL 100 MG TABLET (FP) PO SCH (21:38)
[2023-05-24] MEDS: LIDOCAINE PATCH REMOVAL MC SCH (21:39)
[2023-05-25] MEDS: BACLOFEN 10 MG TABLET (FP) PO SCH ×3 (07:08→21:15)
[2023-05-25] MEDS: metFORMIN HCL 500 MG TABLET (FP) PO SCH ×2 (07:08→16:58)
[2023-05-25] MEDS: LIDOCAINE 5% TOPICAL PATCH TP SCH (09:41)
[2023-05-25] MEDS: HYDROCORTISONE 2.5% TOPICAL CREAM 30 GM TUBE RC SCH (09:42)
[2023-05-25] MEDS: PRENATAL VITAMINS W/ FOLIC ACID TABLET (FP) PO SCH (09:42)
[2023-05-25] MEDS: TAMSULOSIN HCL 0.4 MG CAP PO SCH (09:43)
[2023-05-25] MEDS: GABAPENTIN 100 MG CAPSULE PO SCH (09:43)
[2023-05-25] MEDS: TOLNAFTATE 1% CREAM 15 GM TUBE TP SCH ×2 (09:44→21:17)
[2023-05-25] MEDS: THIAMINE HCL 100 MG TABLET (FP) PO SCH (21:15)
[2023-05-25] MEDS: ATORVASTATIN CA 40 MG TABLET (FP) PO SCH (21:16)
[2023-05-25] MEDS: QUEtiapine FUMARATE 200 MG TABLET PO SCH (21:16)
[2023-05-25] MEDS: DONEPEZIL HCL 10 MG TABLET (FP) PO SCH (21:16)
[2023-05-25] MEDS: LIDOCAINE PATCH REMOVAL MC SCH (21:16)
[2023-05-25] MEDS: MELATONIN 5 MG TABLETS PO SCH (21:16)
[2023-05-26] MEDS: BACLOFEN 10 MG TABLET (FP) PO SCH ×3 (06:01→21:07)
[2023-05-26] MEDS: metFORMIN HCL 500 MG TABLET (FP) PO SCH ×2 (06:01→16:17)
[2023-05-26] MEDS: PRENATAL VITAMINS W/ FOLIC ACID TABLET (FP) PO SCH (09:14)
[2023-05-26] MEDS: TAMSULOSIN HCL 0.4 MG CAP PO SCH (09:14)
[2023-05-26] MEDS: GABAPENTIN 100 MG CAPSULE PO SCH (09:14)
[2023-05-26] MEDS: LIDOCAINE 5% TOPICAL PATCH TP SCH (09:15)
[2023-05-26] MEDS: HYDROCORTISONE 2.5% TOPICAL CREAM 30 GM TUBE RC SCH (09:15)
[2023-05-26] MEDS: TOLNAFTATE 1% CREAM 15 GM TUBE TP SCH ×2 (09:15→21:07)
[2023-05-26] MEDS: DONEPEZIL HCL 10 MG TABLET (FP) PO SCH (21:06)
[2023-05-26] MEDS: THIAMINE HCL 100 MG TABLET (FP) PO SCH (21:06)
[2023-05-26] MEDS: QUEtiapine FUMARATE 200 MG TABLET PO SCH (21:06)
[2023-05-26] MEDS: ATORVASTATIN CA 40 MG TABLET (FP) PO SCH (21:06)
[2023-05-26] MEDS: MELATONIN 5 MG TABLETS PO SCH (21:07)
[2023-05-26] MEDS: LIDOCAINE PATCH REMOVAL MC SCH (21:07)
[2023-05-27] MEDS: BACLOFEN 10 MG TABLET (FP) PO SCH ×3 (06:23→21:13)
[2023-05-27] MEDS: metFORMIN HCL 500 MG TABLET (FP) PO SCH ×2 (06:23→16:32)
[2023-05-27] MEDS: TAMSULOSIN HCL 0.4 MG CAP PO SCH (08:12)
[2023-05-27] MEDS: GABAPENTIN 100 MG CAPSULE PO SCH (10:28)
[2023-05-27] MEDS: PRENATAL VITAMINS W/ FOLIC ACID TABLET (FP) PO SCH (10:28)
[2023-05-27] MEDS: TOLNAFTATE 1% CREAM 15 GM TUBE TP SCH ×2 (10:28→21:14)
[2023-05-27] MEDS: LIDOCAINE 5% TOPICAL PATCH TP SCH (10:29)
[2023-05-27] MEDS: HYDROCORTISONE 2.5% TOPICAL CREAM 30 GM TUBE RC SCH (10:29)
[2023-05-27] MEDS: LOPERAMIDE HCL 2 MG CAPSULE PO PRN (14:33)
[2023-05-27] MEDS: THIAMINE HCL 100 MG TABLET (FP) PO SCH (21:13)
[2023-05-27] MEDS: MELATONIN 5 MG TABLETS PO SCH (21:14)
[2023-05-27] MEDS: QUEtiapine FUMARATE 200 MG TABLET PO SCH (21:14)
[2023-05-27] MEDS: ATORVASTATIN CA 40 MG TABLET (FP) PO SCH (21:14)
[2023-05-27] MEDS: DONEPEZIL HCL 10 MG TABLET (FP) PO SCH (21:15)
[2023-05-27] MEDS: LIDOCAINE PATCH REMOVAL MC SCH (21:15)
[2023-05-28] MEDS: BACLOFEN 10 MG TABLET (FP) PO SCH ×3 (07:16→21:24)
[2023-05-28] MEDS: metFORMIN HCL 500 MG TABLET (FP) PO SCH ×2 (07:16→16:21)
[2023-05-28] MEDS: TAMSULOSIN HCL 0.4 MG CAP PO SCH (09:02)
[2023-05-28] MEDS: HYDROCORTISONE 2.5% TOPICAL CREAM 30 GM TUBE RC SCH (10:27)
[2023-05-28] MEDS: PRENATAL VITAMINS W/ FOLIC ACID TABLET (FP) PO SCH (10:27)
[2023-05-28] MEDS: LIDOCAINE 5% TOPICAL PATCH TP SCH (10:27)
[2023-05-28] MEDS: GABAPENTIN 100 MG CAPSULE PO SCH (10:27)
[2023-05-28] MEDS: TOLNAFTATE 1% CREAM 15 GM TUBE TP SCH ×2 (10:27→21:25)
[2023-05-28] MEDS: DONEPEZIL HCL 10 MG TABLET (FP) PO SCH (21:24)
[2023-05-28] MEDS: LIDOCAINE PATCH REMOVAL MC SCH (21:24)
[2023-05-28] MEDS: THIAMINE HCL 100 MG TABLET (FP) PO SCH (21:24)
[2023-05-28] MEDS: ATORVASTATIN CA 40 MG TABLET (FP) PO SCH (21:24)
[2023-05-28] MEDS: MELATONIN 5 MG TABLETS PO SCH (21:24)
[2023-05-28] MEDS: QUEtiapine FUMARATE 200 MG TABLET PO SCH (21:24)
[2023-05-29] MEDS: metFORMIN HCL 500 MG TABLET (FP) PO SCH ×2 (06:26→16:44)
[2023-05-29] MEDS: BACLOFEN 10 MG TABLET (FP) PO SCH ×3 (06:26→21:11)
[2023-05-29] MEDS: TAMSULOSIN HCL 0.4 MG CAP PO SCH (08:36)
[2023-05-29] MEDS: GABAPENTIN 100 MG CAPSULE PO SCH (10:46)
[2023-05-29] MEDS: PRENATAL VITAMINS W/ FOLIC ACID TABLET (FP) PO SCH (10:46)
[2023-05-29] MEDS: HYDROCORTISONE 2.5% TOPICAL CREAM 30 GM TUBE RC SCH (10:47)
[2023-05-29] MEDS: TOLNAFTATE 1% CREAM 15 GM TUBE TP SCH ×2 (10:47→21:12)
[2023-05-29] MEDS: LIDOCAINE 5% TOPICAL PATCH TP SCH (10:47)
[2023-05-29] MEDS: ATORVASTATIN CA 40 MG TABLET (FP) PO SCH (21:11)
[2023-05-29] MEDS: QUEtiapine FUMARATE 200 MG TABLET PO SCH (21:11)
[2023-05-29] MEDS: DONEPEZIL HCL 10 MG TABLET (FP) PO SCH (21:11)
[2023-05-29] MEDS: THIAMINE HCL 100 MG TABLET (FP) PO SCH (21:11)
[2023-05-29] MEDS: LIDOCAINE PATCH REMOVAL MC SCH (21:12)
[2023-05-29] MEDS: MELATONIN 5 MG TABLETS PO SCH (21:12)
[2023-05-30] MEDS: metFORMIN HCL 500 MG TABLET (FP) PO SCH ×2 (06:46→17:20)
[2023-05-30] MEDS: BACLOFEN 10 MG TABLET (FP) PO SCH ×3 (06:47→21:10)
[2023-05-30] MEDS: TAMSULOSIN HCL 0.4 MG CAP PO SCH (09:09)
[2023-05-30] MEDS: GABAPENTIN 100 MG CAPSULE PO SCH (09:17)
[2023-05-30] MEDS: PRENATAL VITAMINS W/ FOLIC ACID TABLET (FP) PO SCH (09:17)
[2023-05-30] MEDS: HYDROCORTISONE 2.5% TOPICAL CREAM 30 GM TUBE RC SCH (09:17)
[2023-05-30] MEDS: LIDOCAINE 5% TOPICAL PATCH TP SCH (09:18)
[2023-05-30] MEDS: TOLNAFTATE 1% CREAM 15 GM TUBE TP SCH ×2 (09:18→21:11)
[2023-05-30] MEDS: QUEtiapine FUMARATE 200 MG TABLET PO SCH (21:10)
[2023-05-30] MEDS: MELATONIN 5 MG TABLETS PO SCH (21:11)
[2023-05-30] MEDS: ATORVASTATIN CA 40 MG TABLET (FP) PO SCH (21:11)
[2023-05-30] MEDS: THIAMINE HCL 100 MG TABLET (FP) PO SCH (21:11)
[2023-05-30] MEDS: DONEPEZIL HCL 10 MG TABLET (FP) PO SCH (21:11)
[2023-05-30] MEDS: LIDOCAINE PATCH REMOVAL MC SCH (21:11)
[2023-05-31] MEDS: metFORMIN HCL 500 MG TABLET (FP) PO SCH ×2 (06:47→17:30)
[2023-05-31] MEDS: BACLOFEN 10 MG TABLET (FP) PO SCH ×3 (06:49→21:04)
[2023-05-31] MEDS: TAMSULOSIN HCL 0.4 MG CAP PO SCH (09:17)
[2023-05-31] MEDS: PRENATAL VITAMINS W/ FOLIC ACID TABLET (FP) PO SCH (10:10)
[2023-05-31] MEDS: HYDROCORTISONE 2.5% TOPICAL CREAM 30 GM TUBE RC SCH (10:10)
[2023-05-31] MEDS: LIDOCAINE 5% TOPICAL PATCH TP SCH (10:10)
[2023-05-31] MEDS: GABAPENTIN 100 MG CAPSULE PO SCH (10:10)
[2023-05-31] MEDS: ERGOCALCIFEROL (VIT D2) 50,000 UNIT (1.25 MG) CAPSULE PO SCH (10:10)
[2023-05-31] MEDS: TOLNAFTATE 1% CREAM 15 GM TUBE TP SCH ×2 (10:11→21:04)
[2023-05-31] MEDS: ATORVASTATIN CA 40 MG TABLET (FP) PO SCH (21:03)
[2023-05-31] MEDS: QUEtiapine FUMARATE 200 MG TABLET PO SCH (21:03)
[2023-05-31] MEDS: THIAMINE HCL 100 MG TABLET (FP) PO SCH (21:04)
[2023-05-31] MEDS: LIDOCAINE PATCH REMOVAL MC SCH (21:04)
[2023-05-31] MEDS: DONEPEZIL HCL 10 MG TABLET (FP) PO SCH (21:04)
[2023-05-31] MEDS: MELATONIN 5 MG TABLETS PO SCH (21:04)
[2023-06-01] MEDS: BACLOFEN 10 MG TABLET (FP) PO SCH ×3 (05:56→21:28)
[2023-06-01] MEDS: metFORMIN HCL 500 MG TABLET (FP) PO SCH ×2 (06:46→16:40)
[2023-06-01] MEDS: HYDROCORTISONE 2.5% TOPICAL CREAM 30 GM TUBE RC SCH (10:26)
[2023-06-01] MEDS: LIDOCAINE 5% TOPICAL PATCH TP SCH (10:26)
[2023-06-01] MEDS: GABAPENTIN 100 MG CAPSULE PO SCH (10:26)
[2023-06-01] MEDS: PRENATAL VITAMINS W/ FOLIC ACID TABLET (FP) PO SCH (10:26)
[2023-06-01] MEDS: TOLNAFTATE 1% CREAM 15 GM TUBE TP SCH ×2 (10:27→21:28)
[2023-06-01] MEDS: TAMSULOSIN HCL 0.4 MG CAP PO SCH (10:28)
[2023-06-01] MEDS ORDERED: LIDOCAINE 5% TOPICAL PATCH TP SCH (11:30)
[2023-06-01] MEDS: ATORVASTATIN CA 40 MG TABLET (FP) PO SCH (21:27)
[2023-06-01] MEDS: QUEtiapine FUMARATE 200 MG TABLET PO SCH (21:27)
[2023-06-01] MEDS: THIAMINE HCL 100 MG TABLET (FP) PO SCH (21:27)
[2023-06-01] MEDS: MELATONIN 5 MG TABLETS PO SCH (21:28)
[2023-06-01] MEDS: LIDOCAINE PATCH REMOVAL MC SCH (21:28)
[2023-06-01] MEDS: DONEPEZIL HCL 10 MG TABLET (FP) PO SCH (21:28)
[2023-06-02] MEDS: BACLOFEN 10 MG TABLET (FP) PO SCH ×3 (06:43→21:08)
[2023-06-02] MEDS: metFORMIN HCL 500 MG TABLET (FP) PO SCH ×2 (06:43→16:24)
[2023-06-02] MEDS: LOPERAMIDE HCL 2 MG CAPSULE PO PRN (06:46)
[2023-06-02] MEDS: PRENATAL VITAMINS W/ FOLIC ACID TABLET (FP) PO SCH (09:54)
[2023-06-02] MEDS: GABAPENTIN 100 MG CAPSULE PO SCH (09:55)
[2023-06-02] MEDS: TAMSULOSIN HCL 0.4 MG CAP PO SCH (09:55)
[2023-06-02] MEDS: LIDOCAINE 5% TOPICAL PATCH TP SCH (09:56)
[2023-06-02] MEDS: HYDROCORTISONE 2.5% TOPICAL CREAM 30 GM TUBE RC SCH (09:57)
[2023-06-02] MEDS: TOLNAFTATE 1% CREAM 15 GM TUBE TP SCH ×2 (09:57→21:09)
[2023-06-02 14:25] LABS: POTASSIUM 4.6 mmol/L (3.5-5.1)
[2023-06-02 14:30] LABS: ALBUMIN 4.1 g/dl (3.4-5.0); CALCIUM 9.4 mg/dL (8.5-10.1)
[2023-06-02 14:31] LABS: BLOOD UREA NITROGEN 18.4 mg/dL (7-18)
[2023-06-02 14:34] LABS: CREATININE 1.3 mg/dL (0.55-1.3)
[2023-06-02 14:35] LABS: BILIRUBIN,TOTAL 0.2 mg/dL (0.2-1); TOT PROT 7.5 g/dl (6.4-8.2)
[2023-06-02 15:24] LABS: HIV INTERPRETATION NEGATIVE (NEGATIVE)
[2023-06-02] MEDS: QUEtiapine FUMARATE 200 MG TABLET PO SCH (21:08)
[2023-06-02] MEDS: ATORVASTATIN CA 40 MG TABLET (FP) PO SCH (21:08)
[2023-06-02] MEDS: THIAMINE HCL 100 MG TABLET (FP) PO SCH (21:08)
[2023-06-02] MEDS: DONEPEZIL HCL 10 MG TABLET (FP) PO SCH (21:09)
[2023-06-02] MEDS: MELATONIN 5 MG TABLETS PO SCH (21:09)
[2023-06-02] MEDS: LIDOCAINE PATCH REMOVAL MC SCH (21:09)
[2023-06-03] MEDS: metFORMIN HCL 500 MG TABLET (FP) PO SCH ×2 (06:50→16:23)
[2023-06-03] MEDS: BACLOFEN 10 MG TABLET (FP) PO SCH ×3 (06:50→21:18)
[2023-06-03 07:13] VITALS: RESP 18
[2023-06-03] MEDS: PRENATAL VITAMINS W/ FOLIC ACID TABLET (FP) PO SCH (09:39)
[2023-06-03] MEDS: GABAPENTIN 100 MG CAPSULE PO SCH (09:39)
[2023-06-03] MEDS: TAMSULOSIN HCL 0.4 MG CAP PO SCH (09:39)
[2023-06-03] MEDS: HYDROCORTISONE 2.5% TOPICAL CREAM 30 GM TUBE RC SCH (09:40)
[2023-06-03] MEDS: LIDOCAINE 5% TOPICAL PATCH TP SCH (09:40)
[2023-06-03] MEDS: TOLNAFTATE 1% CREAM 15 GM TUBE TP SCH ×2 (09:40→21:19)
[2023-06-03] MEDS: QUEtiapine FUMARATE 200 MG TABLET PO SCH (21:18)
[2023-06-03] MEDS: THIAMINE HCL 100 MG TABLET (FP) PO SCH (21:18)
[2023-06-03] MEDS: DONEPEZIL HCL 10 MG TABLET (FP) PO SCH (21:18)
[2023-06-03] MEDS: ATORVASTATIN CA 40 MG TABLET (FP) PO SCH (21:18)
[2023-06-03] MEDS: LIDOCAINE PATCH REMOVAL MC SCH (21:19)
[2023-06-03] MEDS: MELATONIN 5 MG TABLETS PO SCH (21:19)
[2023-06-04] MEDS: metFORMIN HCL 500 MG TABLET (FP) PO SCH ×2 (06:41→16:19)
[2023-06-04] MEDS: BACLOFEN 10 MG TABLET (FP) PO SCH ×3 (06:42→21:06)
[2023-06-04 06:54] VITALS: PULSE 71; TEMP 97.3
[2023-06-04] MEDS: GABAPENTIN 100 MG CAPSULE PO SCH (09:48)
[2023-06-04] MEDS: TAMSULOSIN HCL 0.4 MG CAP PO SCH (09:48)
[2023-06-04] MEDS: PRENATAL VITAMINS W/ FOLIC ACID TABLET (FP) PO SCH (09:48)
[2023-06-04] MEDS: HYDROCORTISONE 2.5% TOPICAL CREAM 30 GM TUBE RC SCH (09:48)
[2023-06-04] MEDS: LIDOCAINE 5% TOPICAL PATCH TP SCH (09:48)
[2023-06-04] MEDS: TOLNAFTATE 1% CREAM 15 GM TUBE TP SCH ×2 (09:49→21:06)
[2023-06-04] MEDS: THIAMINE HCL 100 MG TABLET (FP) PO SCH (21:05)
[2023-06-04] MEDS: DONEPEZIL HCL 10 MG TABLET (FP) PO SCH (21:05)
[2023-06-04] MEDS: QUEtiapine FUMARATE 200 MG TABLET PO SCH (21:06)
[2023-06-04] MEDS: MELATONIN 5 MG TABLETS PO SCH (21:06)
[2023-06-04] MEDS: ATORVASTATIN CA 40 MG TABLET (FP) PO SCH (21:06)
[2023-06-04] MEDS: LIDOCAINE PATCH REMOVAL MC SCH (21:06)
[2023-06-05] MEDS: metFORMIN HCL 500 MG TABLET (FP) PO SCH (06:51)
[2023-06-05] MEDS: BACLOFEN 10 MG TABLET (FP) PO SCH (06:53)
[2023-06-05 07:17] VITALS: BP 121/78
[2023-06-05] MEDS: LOPERAMIDE HCL 2 MG CAPSULE PO PRN (09:18)
[2023-06-05] MEDS: PRENATAL VITAMINS W/ FOLIC ACID TABLET (FP) PO SCH (09:18)
[2023-06-05] MEDS: TAMSULOSIN HCL 0.4 MG CAP PO SCH (09:18)
[2023-06-05] MEDS: GABAPENTIN 100 MG CAPSULE PO SCH (09:18)
[2023-06-05] MEDS: LIDOCAINE 5% TOPICAL PATCH TP SCH (09:35)
[2023-06-05] MEDS: HYDROCORTISONE 2.5% TOPICAL CREAM 30 GM TUBE RC SCH (09:35)
[2023-06-05] MEDS: TOLNAFTATE 1% CREAM 15 GM TUBE TP SCH (09:35)
== END 2023-06-05 09:39 | disposition home or self-care (01) | DRG 772 ==
LOC: YASAS 10:08 → Y3W 14:31
PROVIDERS: ADMIT Allergy & Immunology; ATTEND Psychiatry & Neurology Pain Medicine
PROC: HZ42ZZZ Group Counseling for Substance Abuse Treatment, Cognitive-Behavioral (ICD-10-PCS; principal; 2023-05-08)
DX: F11.20 Opioid dependence, uncomplicated (principal); F14.20 Cocaine dependence, uncomplicated; F12.20 Cannabis dependence, uncomplicated; F17.210 Nicotine dependence, cigarettes, uncomplicated; E11.9 Type 2 diabetes mellitus without complications; B35.3 Tinea pedis; R94.5 Abnormal results of liver function studies; G47.00 Insomnia, unspecified; Z86.59 Personal history of other mental and behavioral disorders; Z62.810 Personal history of physical and sexual abuse in childhood; Z79.84 Long term (current) use of oral hypoglycemic drugs; Z56.0 Unemployment, unspecified; Z59.01 Sheltered homelessness
CPT/HCPCS: 36415; 80053; 82962; 85027; 86593; 86780; 86803; 87389; 87635; 90677; J0475